=== PATIENT | male | born 1995 | race Caucasian/White ===

== ENCOUNTER 2017-03-14 16:15 | Emergency (ER) | payer OTHER ==
[~2017-03-14] VITALS: Ht 160 cm; Wt 70.3 kg
[2017-03-14 16:18] VITALS: BP 128/91
[2017-03-14] MEDS ORDERED: HUMALOG100 UNIT/1 SUBQ (16:36)
[2017-03-14] MEDS ORDERED: MELATONIN5 M1 PO (16:41)
== END 2017-03-14 16:38 | disposition home or self-care (01) ==
LOC: ER 16:15
DX: Z76.0 Encounter for issue of repeat prescription (principal); M77.9 Enthesopathy, unspecified; E10.9 Type 1 diabetes mellitus without complications; Z79.4 Long term (current) use of insulin; Z88.5 Allergy status to narcotic agent; Z88.8 Allergy status to other drugs, medicaments and biological substances